=== PATIENT | male | born 1970 | race Caucasian/White ===

== ENCOUNTER → 2017-03-29 | Outpatient (CLI) | payer BC ==
--- NOTE | 2017-03-29 10:40 | US ---
EXAMINATION TYPE: US kidneys/renal and bladder DATE OF EXAM: 03/29/2017 COMPARISON: 04/20/16 CLINICAL HISTORY: N20.0. History of kidney stones EXAM MEASUREMENTS: Right Kidney: 11.5 x 6.1 x 5.1 cm Left Kidney: 11.6 x 6.3 x 4.9 cm Right Kidney: no evidence of hydronephrosis or mass Left Kidney: possible stone mid = 0.6cm Bladder: appears wnl Bilateral Jets seen: no There is no evidence for hydronephrosis at this point in time. No masses are identified. The urina ry bladder is anechoic IMPRESSION: I cannot exclude nonobstructive nephrolithiasis left kidney.
--- NOTE | 2017-03-29 14:21 | XR ---
EXAMINATION TYPE: XR KUB DATE OF EXAM: 03/29/2017 CLINICAL DATA: 46-year-old male history of bilateral kidney stones, follow-up study, COMPARISON: 03/25/2016 FINDINGS: Punctate 2 mm calcification again projecting at the left mid abdomen. Surgical material at the right lower quadrant/right hemipelvis. Multiple pelvic phleboliths. IMPRESSION: Stable punctate 2 mm calcification left mid midabdomen, likely tiny renal calculus.
== END | disposition home or self-care (01) ==
LOC: RADUSWWP 08:39
PROVIDERS: ATTEND Urology
DX: N28.89 Other specified disorders of kidney and ureter (principal)
CPT/HCPCS: 74000; 76770

== ENCOUNTER 2017-04-09 06:26 | Emergency (ER) | payer BC ==
[2017-04-09 06:32] VITALS: BP 169/87; PULSE 78; RESP 16; TEMP 98
--- NOTE | 2017-04-09 07:13 | ED ---
General Adult HPI - General Chief complaint: Fall Stated complaint: Rib Pain-Right Side Time Seen by Provider: 04/09/17 06:58 Source: patient, RN notes reviewed, old records reviewed Mode of arrival: ambulatory Limitations: no limitations - History of Present Illness Initial comments: 46-year-old male presents with right-sided chest pain. Patient states proximately 2 weeks ago, he was working on his deck, fell from a standing height onto a floor joist. Patient states he took the full impact with his right-sided chest. Since that time he has had mild intermittent chest pain, worse with deep inspiration, sharp in nature. Patient states last night this pain became more severe, woke him from sleep. Denies any significant difficulty breathing. Patient is not on any medication. No past medical history. Patient denies head or neck injury. Has no other complaints. - Related Data Previous Rx's Medication Instructions Recorded Acetaminophen with Codeine 1 tab PO Q4H PRN #20 tab 03/12/16 [Tylenol w/codeine #3] Naproxen [Naprosyn] 500 mg PO Q12HR #60 tab 03/12/16 Tamsulosin HCl [Flomax] 0.4 mg PO DAILY #30 cap 03/12/16 Hydrocodone/Acetaminophen [Beacon 1 each PO Q6HR PRN #20 tab 03/13/16 5-325] Ondansetron Odt [Zofran ODT] 4 mg PO Q8HR PRN #20 tab 03/13/16 Ibuprofen [Motrin] 600 mg PO Q8HR PRN #24 tab 04/09/17 Allergies Allergy/AdvReac Type Severity Reaction Status Date / Time acetaminophen [From Vicodin] Allergy Unknown Verified 04/09/17 06:32 amoxicillin Allergy Unknown Verified 04/09/17 06:32 clindamycin Allergy Unknown Verified 04/09/17 06:32 hydrocodone bitartrate Allergy Unknown Verified 04/09/17 06:32 [From Vicodin] tramadol Allergy Unknown Verified 04/09/17 06:32 Review of Systems ROS Statement: Those systems with pertinent positive or pertinent negative responses have been documented in the HPI. ROS Other: All systems not noted in ROS Statement are negative. Past Medical History Past Medical History: No Reported History History of Any Multi-Drug Resistant Organisms: None Reported Past Surgical History: Hernia Repair Past Psychological History: No Psychological Hx Reported Smoking Status: Never smoker Past Alcohol Use History: None Reported Past Drug Use History: None Reported General Exam Limitations: no limitations General appearance: alert, in no apparent distress Head exam: Present: atraumatic, normocephalic Eye exam: Present: normal appearance, PERRL ENT exam: Present: normal exam Neck exam: Present: normal inspection. Absent: tenderness, meningismus Respiratory exam: Present: normal lung sounds bilaterally, chest wall tenderness (Right anterior lateral chest wall tenderness). Absent: respiratory distress Cardiovascular Exam: Present: regular rate, normal rhythm GI/Abdominal exam: Present: soft. Absent: distended, tenderness Extremities exam: Present: normal inspection, normal capillary refill. Absent: pedal edema Back exam: Present: normal inspection, full ROM. Absent: tenderness, paraspinal tenderness, vertebral tenderness Neurological exam: Present: alert, oriented X3, CN II-XII intact. Absent: motor sensory deficit Psychiatric exam: Present: normal affect, normal mood Skin exam: Present: warm, dry, intact. Absent: cyanosis, diaphoretic Course Vital Signs 04/09/17 06:28 Temperature 98 F Pulse Rate 78 Respiratory 16 Rate Blood Pressure 169/87 O2 Sat by Pulse 98 Oximetry Medical Decision Making - Medical Decision Making 46-year-old male presenting with right anterior lateral rib pain status post fall. Patient had worsening pain today. No difficulty breathing. Patient is comfortable on examination. X-rays obtained including lateral rib films, this is negative for fracture. There is no underlying lung injury or pneumothorax. Patient will continue to take pain medication at home. He is encouraged to deep breathe. He will follow-up with his primary care physician. Disposition Clinical Impression: Contusion of rib on right side Disposition: HOME SELF-CARE Condition: Good Instructions: Rib Contusion (ED) Prescriptions: Ibuprofen [Motrin] 600 mg PO Q8HR PRN #24 tab PRN Reason: Pain Referrals: Luc Nelson MD [Primary Care Provider] - 1-2 days Time of Disposition: 08:03
--- NOTE | 2017-04-09 07:56 | XR ---
EXAMINATION TYPE: XR ribs RT w pa chest xray DATE OF EXAM: 04/09/2017 COMPARISON: NONE HISTORY: Pain TECHNIQUE: Single view of the chest and 4 views of the ribs are submitted. FINDINGS: The lungs are clear. No Evidence for pneumothorax. No evidence for focal contusion. Medi astinal structures are midline. Evaluation of the ribs fails to demonstrate evidence for displaced r ib fracture or secondary sign of rib fracture. IMPRESSION: Negative study
== END 2017-04-09 08:00 | disposition home or self-care (01) ==
LOC: EC 06:26
DX: S20.211A Contusion of right front wall of thorax, initial encounter (principal); Z88.0 Allergy status to penicillin; Z88.1 Allergy status to other antibiotic agents; Z88.5 Allergy status to narcotic agent; Z88.6 Allergy status to analgesic agent; W19.XXXA Unspecified fall, initial encounter
CPT/HCPCS: 99284

== ENCOUNTER → 2018-05-12 | Outpatient (CLI) | payer BC ==
--- NOTE | 2018-05-12 09:46 | US ---
EXAMINATION TYPE: US renal artery duplex complet DATE OF EXAM: 05/12/2018 COMPARISON: NONE CLINICAL HISTORY: I10 essential hypertension. MEASUREMENTS: RENAL SIZE: Rt Kidney: 11.8 x 6.5 x 5.5cm Lt Kidney: 11.8 x 6.0 x 5.9cm RESISTANCE INDEX Right: 0.89 Left: 0.70 RA/AO RATIO (< 3.5 ) Right: 1.2 Left: 0.9 RA VELOCITY ( < 180 cm/s) Right: 160cm/s Left: 122cm/s Patient had severe overlying bowel gas, technically difficult and somewhat limited exam. Renal artery not well seen bilaterally due to overlying bowel gas, not seen proximally on right. Aorta bifurcation obscured by bowel gas. Punctate renal calculi present bilaterally. No evidence of renal artery stenosis seen in this somewhat limited study. IMPRESSION: 1. The exam is technically limited due to overlying bowel gas with the renal arteries not well visual ized. Given this limitation there is no sonographic evidence of renal arterial stenosis. If there is further clinical concern CTA abdomen could be performed. 2. Bilateral subcentimeter nonobstructing renal calculi.
== END ==
LOC: RADUSMAIN 07:23
PROVIDERS: ATTEND Internal Medicine
DX: I10 Essential (primary) hypertension (principal)
CPT/HCPCS: 93975

== ENCOUNTER → 2018-05-31 | Outpatient (CLI) | payer BC ==
--- NOTE | 2018-05-31 09:03 | CT ---
EXAMINATION TYPE: CT angio abdomen DATE OF EXAM: 05/31/2018 COMPARISON: 03/12/2016 HISTORY: Essential Hypertension CT DLP: 1013 mGycm, Automated Exposure Control for Dose Reduction was Utilized. CONTRAST: CT scan of the abdomen and pelvis is performed with oral and without and with IV Contrast, patient in jected with 100 mL of Isovue 370. FINDINGS: LUNG BASES: No significant abnormality is appreciated. LIVER/GB: Subcentimeter hypodensities within the liver are stable and therefore likely related to sma ll hepatic cysts. PANCREAS: No significant abnormality is seen. SPLEEN: No significant abnormality is seen. ADRENALS: No significant abnormality is seen. KIDNEYS: There are 2 left-sided a single right-sided renal artery which appear widely patent bilatera lly. No diagnostic evidence of renal artery stenosis. Punctate nonobstructing renal calculus noted bi laterally BOWEL: No significant abnormality is seen. LYMPH NODES: No greater than 1cm abdominal or pelvic lymph nodes are appreciated. OSSEOUS STRUCTURES: Bilateral spondylolysis of L5 OTHER: Aorta of normal caliber.. IMPRESSION: 1. No diagnostic evidence of renal artery stenosis. 2. Nonobstructing punctate bilateral renal calculi
== END | disposition home or self-care (01) ==
LOC: RADCTMAIN 08:03
PROVIDERS: ATTEND Internal Medicine
DX: N20.0 Calculus of kidney (principal); I10 Essential (primary) hypertension
CPT/HCPCS: 74175; Q9967

== ENCOUNTER 2018-08-09 08:52 | Day surgery (SDC) | payer BC ==
[2018-08-05 11:23] VITALS: BMI 29.4
[~2018-08-09 08:52] MED LIST: LACTATED RINGERS 1,000 ML IV SCH; LIDOCAINE 1% 20 ML VIAL (10MG/ML) FOR IV START INTRADERMA PRN
[2018-08-09 09:26] VITALS: RESP 16; TEMP 98.7
[2018-08-09] MEDS ORDERED: PROPOFOL 10 MG/ML 20 ML VIAL IV ONE (09:53)
[2018-08-09] MEDS ORDERED: LIDOCAINE 1% INJ 10MG/ML (20 ML MDV) ONE (09:53)
--- NOTE | 2018-08-09 10:32 | P.PCN ---
Date of Procedure: 08/09/18 Procedure(s) Performed: Procedure: 1. Esophagogastroduodenoscopy and biopsy. 2. Colonoscopy and polypectomy. Preoperative diagnosis: Atypical chest pain and family history of colon cancer in his father. Postoperative diagnosis: 1. Small sliding hiatal hernia and LA grade B distal esophagitis and a very short segment of Ngo's esophagus. 2. Mild antral gastritis. 3. Multiple biopsies obtained from the duodenum, antrum, esophagus including separate biopsies from the Ngo's segment. 4. Two small sigmoid polyps snared but no large polyps or cancer. Preparation: HalfLytely prep. Sedation: Was provided by anesthesia. Brief clinical history: The patient is a 48-year-old male with family history of colon cancer in his father. His last colonoscopy was in 2010. The patient, in addition, has reflux kind symptoms and atypical chest pain that responds to PPI with recurrence off the medication. Procedure: With the patient on his left lateral decubitus position and after informed consent and adequate sedation, I passed the Olympus-GIF a 190 video upper endoscope through the cricopharyngeus down the esophagus. GE junction was around 38 cm from the incisors and there was a small sliding hiatal hernia and a short segment of Ngo's esophagus. The distal esophagus showed LA grade B es ophagitis. No strictures or ulcers. The endoscope was then passed into the stomach which was insufflated with air and inspected in detail including the retroflex view in the cardia. There was some minimal mottling and erythema in the antrum but no ulcers or erosions. Pyloric channel, duodenal bulb, post bulbar area and descending duodenum appeared within normal limits. I obtained biopsies from the duodenum, antrum and esophagus including separate specimens from the Ngo's segment then the endoscope was withdrawn and I proceeded to perform the colonoscopy. Perianal area did not show any fissures or fistulas. There were no masses felt on digital rectal examination. The Olympus CFH 190L video colonoscope was then inserted in the rectum in the usual fashion and advanced to the cecum. There were 2 small polyps in the sigmoid between 30 and 40 cm from the anal verge which were snared and retrieved by suction but there were no large polyps or cancer. The mucosa appeared healthy. No definite diverticular disease or other pathology. I retroflexed the endoscope in the rectum before the endoscope was withdrawn. The patient tolerated the procedure well. Plan: The patient was reassured. Will await pathology results. I recommended repeat colonoscopy in 5 years. He will follow up with you as planned and I will be happy to see in the office of his upper GI symptoms continue.
[2018-08-09 10:43] VITALS: BP 106/62; PULSE 55
== END 2018-08-09 11:00 | disposition home or self-care (01) ==
LOC: ORWHC2ENDO 08:52
DX: Z12.11 Encounter for screening for malignant neoplasm of colon (principal); D12.5 Benign neoplasm of sigmoid colon; K44.9 Diaphragmatic hernia without obstruction or gangrene; K29.50 Unspecified chronic gastritis without bleeding; K22.70 Barrett's esophagus without dysplasia; K21.0 Gastro-esophageal reflux disease with esophagitis; Z80.0 Family history of malignant neoplasm of digestive organs; I10 Essential (primary) hypertension; Z79.82 Long term (current) use of aspirin; Z79.899 Other long term (current) drug therapy; Z88.1 Allergy status to other antibiotic agents; Z88.5 Allergy status to narcotic agent; Z88.0 Allergy status to penicillin
CPT/HCPCS: 88305; 45385; 43239; J2001; J2704

== ENCOUNTER → 2018-09-08 | Outpatient (CLI) | payer BC ==
--- NOTE | 2018-09-13 14:52 | SLS ---
SLEEP STUDY HOME SLEEP STUDY: DATE OF SERVICE: 09/08/2018 A 48-year-old male patient with symptoms of snoring, feeling tired and fatigued during the day. Who carried an [place] score of 9. He came in for sleep apnea evaluation. I had a high suspicion for NELA and the patient was set up to undergo a home sleep study. PERTINENT PHYSICAL FINDINGS: Height is 70 inches, weight is 218, BMI 31.3 TECHNICAL DESCRIPTION: The [employer] T3 system was used to complete the home sleep study. Total recording duration was 7 hours and 11 minutes. Bedtime started at 10:16 pm and ended at 5:12 am and total time in bed was 6 hours and 56 minutes. RESULTS: The respiratory count showed a total of 74 obstructive apneas, 44 central/mixed apneas, and 76 hypopneas and the resulting apnea-hypopnea index was 28. The disease was worse in the supine body position with an AHI of 38.6 while supine. OXYGENATION ANALYSIS: The patient had oxygen desaturation, a total of 132 oxygen desaturations were counted with otherwise pulse ox peak 85% and this patient spent approximately 2% of sleep time only at a pulse ox of less than 90%. CARDIAC SUMMARY: Average heart rate was 50, minimum heart was 42, maximum heart rate was 69. IMPRESSION: 1. Symptomatic sleep apnea probably a combination of obstructive and mixed. The patient's apnea-hypopnea index was 28, worse in the supine body position. 2. Mild nocturnal oxygen desaturation. 3. Chronic hypersomnia, [place] score of 9. PLAN: 1. Encourage weight loss. 2. Ask the patient to present back to the [facility] to undergo a CPAP titration regarding his symptomatic obstructive sleep apnea. 3. Implement good sleep hygiene measures. 4. Extend sleep hours to an average of 7 to 8 hours of sleep per night. 5. Will continue to follow. MMODL / IJN: [id number] /
== END ==
LOC: SLEEP 16:39
PROVIDERS: ATTEND Internal Medicine Critical Care Medicine
DX: G47.30 Sleep apnea, unspecified (principal); R53.83 Other fatigue

== ENCOUNTER → 2019-01-10 | Outpatient (CLI) | payer BC ==
--- NOTE | 2019-01-10 20:21 | PN ---
PROGRESS NOTE This is a 48-year-old male patient who was recently diagnosed having obstructive sleep apnea, moderate to severe, with an AHI of 28, worse in the supine body position with an AHI of 36 while being supine. The patient was quite somnolent and sleepy with an [place] score of 9 and the patient was started on CPAP at a pressure of 8 cm of water. On today's evaluation, he feels great; his sleep quality has improved; he is much more alert and refreshed during the day and he has more energy. Unfortunately he has gained weight. He used to weigh 208 pounds and currently is up to 226. No morning headaches. No tiredness or sleepiness during the day. He is committed to weight loss. He thinks his weight gain is related to his dietary habits. REVIEW OF SYSTEMS: Fourteen-point review of systems was done. Positive findings were all mentioned above in the history of present illness. No insomnia. No headache. No morning tiredness or sleepiness. No falling asleep while driving a car. No nocturia. No insomnia. No choking or gasping for air. His snoring has completely subsided. PHYSICAL EXAMINATION: VITAL SIGNS: BP is 150/73, pulse 56, respirations 16, temperature 98.7. Weight is 226. Saturation 96% on room air. GENERAL APPEARANCE: Calm, comfortable. HEAD: Atraumatic, normocephalic. NECK: Supple. No JVD. No goiter or neck masses. LUNGS: Clear to auscultation. HEART: Heart sounds are regular rate and rhythm. Normal S1, S2. No S3, S4. No murmurs. ABDOMEN: Soft, nontender. No organomegaly. EXTREMITIES: No edema. No cyanosis or clubbing. NEUROLOGIC: Alert and oriented x3. No focal neurological deficits. PSYCHIATRIC: Negative for anxiety or depression. IMPRESSION: 1. Obstructive sleep apnea, moderate to severe, with apnea/hypopnea index of 28, currently on CPAP pressure of 8 with extremely good clinical response and compliance. 2. Poor sleep efficiency, improved with CPAP therapy. 3. Delayed sleep onset, improved with CPAP therapy. 4. Chronic hypersomnia, recovered. 5. Snoring, recovered. 6. Obesity with interval weight gain. 7. Hypertension. PLAN: 1. Encourage weight loss. 2. Keep CPAP pressure at 8 with a C-flex of 3. 3. Continue using the same mask, which is a DreamWear [id number], and offer the DreamWear nose pillows. 4. Eliminate RAMP time. 5. Drop the temperature of the tubing down to 66 degrees. 6. Drop the humidity down to 4. 7. See me back in a year's time in followup, earlier if needed. Treatment is successful for now. MMODL / IJN: [id number] /
== END | disposition home or self-care (01) ==
LOC: SLEEP 15:49
PROVIDERS: ATTEND Internal Medicine Critical Care Medicine
DX: G47.33 Obstructive sleep apnea (adult) (pediatric) (principal); E66.9 Obesity, unspecified; I10 Essential (primary) hypertension; Z99.89 Dependence on other enabling machines and devices

== ENCOUNTER → 2020-02-07 | Outpatient (CLI) | payer BC ==
--- NOTE | 2020-02-07 08:33 | US ---
EXAMINATION TYPE: US renal artery duplex complete DATE OF EXAM: 02/07/2020 COMPARISON: CT angio/Us CLINICAL HISTORY: I10 Essential primary hypertension. 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 No evidence of renal artery stenosis. IMPRESSION: No diagnostic evidence of renal artery stenosis
== END | disposition home or self-care (01) ==
LOC: RADUSWWP 06:52
PROVIDERS: ATTEND Internal Medicine
DX: I10 Essential (primary) hypertension (principal)
CPT/HCPCS: 93975

== ENCOUNTER 2020-09-17 13:00 | Emergency (ER) | payer BC, OTHER ==
[2020-09-17 13:06] VITALS: BP 161/94; PULSE 70; RESP 20; TEMP 98
--- NOTE | 2020-09-17 14:04 | XR ---
EXAMINATION TYPE: XR shoulder complete RT DATE OF EXAM: 09/17/2020 COMPARISON: NONE HISTORY: Pain TECHNIQUE: Three views are submitted. FINDINGS: The osseous structures are intact. There is no acute fracture or dislocation. Diffuse osteopenia wit h AC joint arthropathy. Calcification along the humeral head can be associated with calcific tendinos is. IMPRESSION: 1. AC joint arthropathy.
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
[2020-09-17] MEDS ORDERED: ACET/COD 300 MG/30 MG STARTER PACK 6 TAB BTL PO STA (14:33)
== END 2020-09-17 14:50 | disposition home or self-care (01) ==
LOC: EC 13:00
DX: S49.91XA Unspecified injury of right shoulder and upper arm, initial encounter (principal); K21.9 Gastro-esophageal reflux disease without esophagitis; I10 Essential (primary) hypertension; Z79.82 Long term (current) use of aspirin; Z79.899 Other long term (current) drug therapy; W24.0XXA Contact with lifting devices, not elsewhere classified, initial encounter
CPT/HCPCS: 99283

== ENCOUNTER → 2021-04-01 | Outpatient (CLI) | payer BC ==
--- NOTE | 2021-04-01 16:41 | PN ---
PROGRESS NOTE Salty is 50, coming in for a followup regarding obstructive sleep apnea. His last evaluation was in January 2019. As mentioned earlier, the patient has obstructive sleep apnea with an AHI of 28. Over the past 2 years the patient has lost weight and currently is down to 212 pounds. He is utilizing CPAP. Initial pressure was at 8 and he made his own adjustment by bringing the pressure up to 9.2 cm of water. Based on a 30-day compliancy evaluation, the patient has been averaging around 5.2 hours of CPAP use per night and using the P30I nasal pillows with a leak of 2 L/minute and his AHI is down to 1.1. His treatment is successful. On today's evaluation I further suggested switching him to an APAP mode, knowing that at times he is benefitting from a higher pressure. I suggested we put him at a minimum pressure of 4 and maximum pressure of 10 APAP mode and appropriate adjustment was done on the CPAP machine. Otherwise he is doing well. No other new onset comorbidities since his last evaluation. BP is under good control. His medication include: Olmesartan, hydrochlorothiazide 40/12.5 1 tab a day. REVIEW OF SYSTEMS: Fourteen-point review of system was done. Positive findings are mentioned above in the history of present illness. PHYSICAL EXAMINATION: BP is 132/80, pulse 84, respirations 16, temperature 97.3, saturation 98% on room air. Height is 5 feet 10 inches, weight is 212. BMI is 30.4. [place] score is at 5. GENERAL APPEARANCE: Calm, comfortable. Head is atraumatic. Normocephalic. NECK: Supple. No JVD. No goiter or neck masses. Mallampati class 4. LUNGS: Clear to auscultation. HEART: Heart sounds are regular rate and rhythm. Normal S1, S2. No S3. No murmurs. ABDOMEN: Soft, nontender. No organomegaly. EXTREMITIES: No edema, no cyanosis or clubbing. IMPRESSION: Symptomatic obstructive sleep apnea, AHI of 28. Currently the patient is utilizing CPAP at a pressure of 9.2 cm of water. PLAN: Treatment is successful. The patient is asymptomatic. Continue CPAP therapy and switch this patient to an APAP mode, pressure minimum of 4, maximum of 10, keeping the same mask interface and the patient is currently on a P30I medium-sized nasal pillows. Treatment is successful. Blood pressure is under good control. He is benefitting from treatment, waking up refreshed and alert during the day. No other issues for now. See me back in a year's time in followup, earlier if needed. Treatment is successful. MMODL / IJN: [id number] /
== END ==
LOC: SLEEP 14:15
PROVIDERS: ATTEND Internal Medicine Critical Care Medicine
DX: G47.33 Obstructive sleep apnea (adult) (pediatric) (principal); Z99.89 Dependence on other enabling machines and devices; Z88.1 Allergy status to other antibiotic agents; Z88.5 Allergy status to narcotic agent; Z88.6 Allergy status to analgesic agent

== ENCOUNTER → 2021-08-20 | Outpatient (CLI) | payer BC ==
--- NOTE | 2021-08-20 12:14 | P.STRESS ---
- Stress Test Note Stress Test Results/Findings: Exam Performed: stress echo exercise Exam Date: 08/20/21 Reason for Exam: CP Height: 5 ft 10 in Weight: 213 kg Protocol: STRESS ECHO Stage: III Duration of Exercise: 10.11 Resting Heart Rate: 72 Resting Blood Pressure: 129/74 Maximum Achieved Heart Rate: 165 Maximum Achieved Blood Pressure: 207/79 85% PMHR: 143 100% PMHR: 168 METS: 11.7 Technologist Comment: Stress Test Results/Findings: Patient underwent exercise stress echo with a Blanco protocol treadmill stress test. Patient exercised into Stage 3 for a total of 10 minutes 11 seconds reaching a total of 11.7 METS. Patient's maximum heart rate was 165 which represented 98 % age-predicted maximum heart rate. Stress EKG portion: At baseline patient's EKG showed normal sinus rhythm, normal axis, nonspecific T-wave inversions in V3 through V6 and lead 2 and 3. At peak exercise, EKG showed accentuation of baseline EKG abnormalities with up to 0.[address] depressions V3 through V6 which is nondiagnostic given baseline EKG abnormalities. Stress echo portion: 2-D echocardiogram was performed in the parasternal long, personal short, apical 2 and apical four-chamber views at rest, peak exercise and in recovery. At baseline, echocardiogram showed left ventricular ejection fraction 55% without wall motion abnormalities. With peak exercise, echocardiogram shows inducible basal and mid anterior lateral hypokinesis consistent with ischemia. Conclusions: 1. Nondiagnostic EKG portion secondary baseline EKG abnormalities. 2. Abnormal stress echo portion with inducible anterior lateral ischemia. 3. Good exercise capacity.
== END | disposition home or self-care (01) ==
LOC: RADNMMAIN 08:47
PROVIDERS: ATTEND Family Medicine
DX: R93.1 Abnormal findings on diagnostic imaging of heart and coronary circulation (principal); I25.9 Chronic ischemic heart disease, unspecified
CPT/HCPCS: 93351

== ENCOUNTER 2021-09-03 11:42 | Day surgery (SDC) | payer BC ==
[2021-09-02 15:48] VITALS: BMI 30.2
[~2021-09-03 11:42] MED LIST changes: +ALPRAZolam 0.25 MG TAB PO PRN; +ALPRAZolam 0.5 MG TAB PO PRN; +ASPIRIN 325 MG TAB PO STA; +ATORVASTATIN 80 MG TAB PO STA; +HEPARIN SODIUM,PORCINE 10,000 UNIT in SODIUM CHLORIDE 0.9% 1,000 ML IRRIGATION PRN; +HEPARIN SODIUM,PORCINE 2,500 UNIT in SODIUM CHLORIDE 0.9% 250 ML IRRIGATION PRN; -LACTATED RINGERS 1,000 ML IV SCH; -LIDOCAINE 1% 20 ML VIAL (10MG/ML) FOR IV START INTRADERMA PRN; +NITROGLYCERIN SL TABS 0.4 MG TAB SUBLINGUAL PRN; +SODIUM CHLORIDE 0.9% 1,000 ML in EMPTY BAG 1 BAG IV SCH
[2021-09-03] MEDS ORDERED: SODIUM CHLORIDE 0.9% 1,000 ML IV ONE (11:52)
[2021-09-03 12:15] VITALS: RESP 16; TEMP 98.4
[2021-09-03 12:31] LABS: Basophils # (A) 0.1 k/uL (0-0.2); Basophils % (A) 1 %; Eosinophils # (A) 0.2 k/uL (0-0.7); Eosinophils % (A) 2 %; HCT 45.6 % (39.0-53.0); HGB 15.1 gm/dL (13.0-17.5); Lymphocytes # (A) 2.8 k/uL (1.0-4.8); Lymphocytes % (A) 29 %; MCH 29.1 pg (25.0-35.0); MCHC 33.1 g/dL (31.0-37.0); MCV 87.8 fL (80.0-100.0); Mean Platelet Volume 7.1; Monocytes # (A) 0.4 k/uL (0-1.0); Monocytes % (A) 4 %; Neutrophils # (A) 5.9 k/uL (1.3-7.7); Neutrophils % (A) 62 %; Platelet Count 304 k/uL (150-450); RDW 12.8 % (11.5-15.5); WBC 9.4 k/uL (3.8-10.6)
[2021-09-03 12:33] LABS: African American GFR (CKD) >90 (>60 ml/min/1.73 sqM); Anion Gap 9 mmol/L; Blood Urea Nitrogen 17 mg/dL (9-20); Calcium 9.3 mg/dL (8.4-10.2); Carbon Dioxide 26 mmol/L (22-30); Chloride 104 mmol/L (98-107); Glucose 142 mg/dL (74-99); Non-African American GFR(CKD) >90 (>60 ml/min/1.73 sqM); Potassium 3.5 mmol/L (3.5-5.1); Sodium 139 mmol/L (137-145)
[2021-09-03] MEDS ORDERED: MIDAZOLAM 2 MG/2 ML VIAL IVP ONE (13:20)
[2021-09-03] MEDS ORDERED: LIDOCAINE 1% INJ 10MG/ML (5 ML VIAL-PF) SQ ONE (13:22)
[2021-09-03] MEDS ORDERED: VERAPAMIL SYRINGE (5 MG/10 ML) INTRAARTER ONE (13:24)
[2021-09-03] MEDS ORDERED: HEPARIN SODIUM 1,000 UN/ML (10ML VL) IVP ONE (13:25)
[2021-09-03] MEDS ORDERED: IOPAMIDOL-370 125ML BTL INJ ONE (13:30)
[2021-09-03] MEDS ORDERED: RX INFO: IV CONTRAST WAS GIVEN 1 EACH MISC MISCELLANE PRN (13:37)
--- NOTE | 2021-09-03 13:42 | P.PCN ---
Date of Procedure: 09/03/21 Operative Findings: CARDIAC CATHETERIZATION PERFORMING PHYSICIAN: Main Suarez MD, RPVI PROCEDURE PERFORMED: 1. Selective right and left coronary angiogram 2. Left heart catheterization INDICATION: This is a 52-year-old gentleman who was experiencing symptoms of chest discomfort and underwent an perfusion imaging stress test came in to be abnormal showing anterolateral ischemia. In the light of that heart catheterization was advised COMPLICATION: None APPROACH: Right radial artery LEVEL OF SEDATION: Moderate with a sedation length of 14 minutes PROCEDURE DESCRIPTION: After obtaining an informed consent, the patient was brought to cardiac geophysical laboratory chief. Local anesthesia was performed using lidocaine subcutaneously. The right radial artery was cannulated using Seldinger technique, the guidewire passed easily, following that we advanced a 5-Azerbaijani sheath dilator assembly, the wire and dilator were removed and sheath was flushed. Following that, 2 mg of verapamil along with 5000 unit heparin were given. Selective right and left coronary angiogram using a 6-Azerbaijani JR4 and JL 3.5 catheters. Following that we did left heart catheterization using the JR4 catheter which cross the aortic valve The procedure was completed there was no complication. SELECTIVE CORONARY ANGIOGRAM: The right coronary artery: Is a large caliber vessel and a dominant vessel. Its angiographically normal. Distally bifurcates into PDA and PLV branches both appear to be angiographically normal. Left main: Has mild disease in the ostium appears to be in the range of 20-30%. The left circumflex: Is a large caliber vessel nondominant vessel. The LCx is angiographically normal. It gives rises into the first and second obtuse marginal branches and it appeared to be angiographically normal The left anterior descending artery: Is angiographically normal. Gives rises into the first and second diagonal branches and both appeared to be angiographically normal. The mid LAD has is mild component of myocardial bridging HEMODYNAMICS: The LVEDP was 12 mmHg without significant gradient across aortic valve CONCLUSION: 1. Myocardial bridging of the mid LAD 2. Normal LVEDP POSTPROCEDURE MANAGEMENT: Medical treatment and follow-up
[2021-09-03] MEDS ORDERED: SODIUM CHLORIDE 0.9% 1,000 ML IV SCH (13:45)
[2021-09-03 16:13] VITALS: BP 127/76
[2021-09-03 16:50] VITALS: PULSE 62
== END 2021-09-03 17:30 | disposition home or self-care (01) ==
LOC: CATHCVL 11:42
PROVIDERS: ATTEND Internal Medicine Interventional Cardiology
DX: I25.110 Atherosclerotic heart disease of native coronary artery with unstable angina pectoris (principal); E78.00 Pure hypercholesterolemia, unspecified; I10 Essential (primary) hypertension; R94.39 Abnormal result of other cardiovascular function study; R07.89 Other chest pain; Z20.822 Contact with and (suspected) exposure to COVID-19; R00.1 Bradycardia, unspecified; Z82.49 Family history of ischemic heart disease and other diseases of the circulatory system; E66.3 Overweight; Z79.02 Long term (current) use of antithrombotics/antiplatelets; Z79.899 Other long term (current) drug therapy
CPT/HCPCS: 93458; 80048; 85025; 87635; C1894; J2250; J2001; J1644; Q9967

== ENCOUNTER 2021-09-12 06:23 | Day surgery (SDC) | payer BC ==
[2021-09-10 13:13] VITALS: BMI 31.5
[~2021-09-12 06:23] MED LIST changes: -ALPRAZolam 0.25 MG TAB PO PRN; -ALPRAZolam 0.5 MG TAB PO PRN; -ASPIRIN 325 MG TAB PO STA; -ATORVASTATIN 80 MG TAB PO STA; -HEPARIN SODIUM,PORCINE 10,000 UNIT in SODIUM CHLORIDE 0.9% 1,000 ML IRRIGATION PRN; -HEPARIN SODIUM,PORCINE 2,500 UNIT in SODIUM CHLORIDE 0.9% 250 ML IRRIGATION PRN; +LACTATED RINGERS 1,000 ML IV SCH; -NITROGLYCERIN SL TABS 0.4 MG TAB SUBLINGUAL PRN; -SODIUM CHLORIDE 0.9% 1,000 ML in EMPTY BAG 1 BAG IV SCH
[2021-09-12] MEDS ORDERED: LACTATED RINGERS 1,000 ML IV ONE (06:49)
[2021-09-12 06:51] VITALS: TEMP 98
[2021-09-12] MEDS ORDERED: fentaNYL (PF) 50 MCG/ML 2 ML AMP ONE (07:48)
[2021-09-12] MEDS ORDERED: LIDOCAINE 2% INJ 20 MG/ML (2 ML VIAL) ONE (07:48)
[2021-09-12] MEDS ORDERED: PROPOFOL 10 MG/ML 20 ML VIAL IV ONE (07:48)
[2021-09-12] MEDS ORDERED: MIDAZOLAM 2 MG/2 ML VIAL ONE (07:48)
--- NOTE | 2021-09-12 08:07 | P.PCN ---
Date of Procedure: 09/12/21 Procedure(s) Performed: Brief history: Patient is a pleasant 51-year-old white male scheduled for an elective upper endoscopy as well as colonoscopy as a part of evaluation of GERD/Ngo's esophagus and screening for colon cancer. He also has family history of colon cancer. Procedure performed: Esophagogastroduodenoscopy biopsy Colonoscopy with snare polypectomy Preoperative diagnosis: GERD/Ngo's esophagus Screening for colon cancer Anesthesia: [facility] [place] Procedure: After informed consent was obtained from the patient was brought into the endoscopy unit and IV sedation was administered by anesthesia under continuous monitoring. Initially upper endoscopy was done. The Olympus GF 160 video end oscope was inserted inserted into the mouth and esophagus intubated without any difficulty and was gradually advanced into the stomach and duodenum and carefully examined. The bulb and second part of the duodenum appeared normal. The scope was then withdrawn into the stomach adequately insufflated with air and upon careful examination the antrum and body, cardia and fundus appeared normal. The scope was then withdrawn into the esophagus. The GE junction was located at 40 cm to the incisors. There was a 3 mm island of Ngo's appearing mucosa just proximal to the GE junction which was biopsied. It appeared regular with no erythema erosions or ulcerations. Rest of the esophagus appeared normal. Patient tolerated the procedure well. At this time the patient continued to remain sedation. Initial digital rectal examination was normal. Olympus CF 160 video colonoscope was then inserted into the rectum and gradually advanced to the cecum without any difficulty. Careful examination was performed as the scope was gradually being withdrawn. The prep was excellent. The cecum, ascending colon, transverse colon, we normal. In the descending colon there were 3 polyps measuring between 3 mm and 5 mm removed by snare polypectomy. Rest of the descending colon, sigmoid colon and rectum appeared normal. Retroflexion was performed in the rectum and no lesions were noted. Patient tolerated the procedure well. Impression: 1. Upper endoscopy revealed 2 mm island of Ngo's appearing mucosa just proximal to the GE junction, status post biopsy 2. Last revealed 3 mm, 5 mm 2 descending colon polyp status post snare polypectomy Recommendations: Findings of this examination were discussed with the patient as well as his family. He was advised to follow with the biopsy results. If the biopsy confirms the presence of Ngo's esophagus he can have a repeat upper in 3 years. Repeat colonoscopy in 5 years.
[2021-09-12 08:14] VITALS: RESP 16
[2021-09-12 08:26] VITALS: BP 120/80; PULSE 65
== END 2021-09-12 08:50 | disposition home or self-care (01) ==
LOC: ORWHC2ENDO 06:23
PROVIDERS: ATTEND Internal Medicine Gastroenterology
DX: K22.70 Barrett's esophagus without dysplasia (principal); D12.4 Benign neoplasm of descending colon; K21.9 Gastro-esophageal reflux disease without esophagitis; I10 Essential (primary) hypertension; G47.33 Obstructive sleep apnea (adult) (pediatric); Z99.81 Dependence on supplemental oxygen; Z88.3 Allergy status to other anti-infective agents; Z88.5 Allergy status to narcotic agent; Z79.82 Long term (current) use of aspirin; Z79.899 Other long term (current) drug therapy; Z80.0 Family history of malignant neoplasm of digestive organs
CPT/HCPCS: 45385; 43239; 88305; J2250; J3010; J2704; J2001

== ENCOUNTER → 2024-04-21 | Outpatient (CLI) | payer BC ==
--- NOTE | 2024-04-21 08:50 | US ---
EXAMINATION TYPE: US abdomen complete DATE OF EXAM: 04/21/2024 COMPARISON: NONE CLINICAL INDICATION: Male, 53 years old with history of R10.9 UNSPECIFIED ABDOMINAL PAIN; twinge in R UQ, feels superficial, comes and goes, recently lost weight TECHNIQUE: Grayscale and color Doppler imaging of the abdomen was performed. FINDINGS: EXAM MEASUREMENTS: Liver Length: 16.5 cm Gallbladder Wall: 0.2 cm CBD: 0.5 cm, color Doppler imaging was utilized to isolate the common bile duct for measurement. Spleen: 8.3 cm Right Kidney: 10.7 x 5.7 x 5.6 cm Left Kidney: 11.9 x 5.1 x 7.1 cm Pancreas: limited views Liver: multiple cystic areas seen, largest right posterior lobe = 2.9 x 2.1 x 1.9cm increased echot exture to liver. Gallbladder: wnl Evidence for sonographic León's sign: no CBD: wnl Spleen: wnl Right Kidney: wnl Left Kidney: wnl Upper IVC: wnl Abd Aorta: wnl The liver is homogenous with few scattered anechoic cysts.. The intrahepatic portion of the IVC and proximal abdominal aorta are within normal limits. There is no evidence of cholelithiasis. Common b ile duct is unremarkable. The visualized portions of the pancreas are homogenous. The spleen is unr emarkable. Kidneys are symmetric and free of hydronephrosis. No renal lesions are seen. IMPRESSION: 1. No evidence for acute process. 2. Hepatic simple appearing cyst. 3. Hepatic steatosis. [facility], , 04/21/2024 8:48 AM
== END | disposition home or self-care (01) ==
LOC: RADUSWWP 07:27
PROVIDERS: ATTEND Family Medicine
DX: K76.0 Fatty (change of) liver, not elsewhere classified (principal); R10.9 Unspecified abdominal pain
CPT/HCPCS: 76700

== ENCOUNTER → 2024-07-07 | Outpatient (CLI) | payer BC ==
--- NOTE | 2024-07-07 10:33 | NM ---
EXAMINATION TYPE: NM hepatobiliary w CCK DATE OF EXAM: 07/07/2024 COMPARISON: NONE INDICATION: Abdomen pain TECHNIQUE: After the intravenous administration of 4.8 mCi Tc 99m Mebrofenin hepatobiliary scintigrap hy is performed. Images were obtained immediately post injection. FINDINGS: There is prompt uptake and excretion of radiotracer by the liver. Extrahepatic ducts are identified at 2 minutes. The gallbladder is visualized within 6 minutes. Small bowel activity is noted within the minutes. At one hour CCK was administered, patient was injected with 1.73 mcg of Kinevac, and gallbladder ejec tion fraction is calculated at 69 %, which is in the normal range.. (Normal >35% and <80%.). IMPRESSION: 1. Normal hepatobiliary scan. [facility], , 07/07/2024 10:30 AM
== END | disposition home or self-care (01) ==
LOC: RADNMMAIN 06:55
PROVIDERS: ATTEND Family Medicine
DX: R10.9 Unspecified abdominal pain (principal)
CPT/HCPCS: 78227; A9537; J2805

== ENCOUNTER 2024-09-05 09:32 | Day surgery (SDC) | payer BC ==
[2024-08-30 15:51] VITALS: BMI 26.8
[~2024-09-05 09:32] MED LIST changes: -LACTATED RINGERS 1,000 ML IV SCH; +LIDOCAINE 1% (10MG/ML) FOR IV START INTRADERMA PRN
[2024-09-05 10:13] VITALS: TEMP 97.7
[2024-09-05] MEDS: LACTATED RINGERS 1,000 ML IV SCH (10:13)
[2024-09-05] MEDS: IV FLUID CONTINUATION 1,000 ML IV ONE (10:13)
[2024-09-05] MEDS ORDERED: LIDOCAINE 2% (PF) 20 MG/ML 5 ML VIAL ONE (10:49)
[2024-09-05] MEDS ORDERED: PROPOFOL 10 MG/ML 20 ML VIAL IV ONE (10:49)
--- NOTE | 2024-09-05 10:58 | P.PCN ---
Date of Procedure: 09/05/24 Procedure(s) Performed: BRIEF HISTORY: Patient is a 54-year-old, pleasant, white male scheduled for an upper endoscopy as a part of history of longstanding history of GERD and possible Ngo's esophagus. PROCEDURE PERFORMED: Esophagogastroduodenoscopy with biopsy. PREOPERATIVE DIAGNOSIS: GERD/history of Ngo's esophagus. IV sedation per anesthesia. PROCEDURE: After informed consent was obtained, the patient was brought into the endoscopy unit. IV sedation was administered by Anesthesia under continuous monitoring. Initially the Olympus GIF-140 video endoscope was inserted into the mouth. Esophagus intubated without any difficulty. It was gradually advanced into the stomach and duodenum and carefully examined. The bulb and the second part of the duodenum appeared normal. The scope at this time was withdrawn to the stomach, adequately insufflated with air, and upon careful examination, mucosa of the antrum, body, cardia and the fundus appeared normal. The scope was then withdrawn into the esophagus. The GE junction was located at 39 cm from the incisors. Small hiatal hernia noted. There was a 2 mm tongues of Ngo's appearing mucosa proximal to the GE junction that was biopsied. The rest of the esophagus appeared normal. There were no erosions or ulcerations seen and the patient tolerated the procedure well. IMPRESSION: 1. 2 mm tongue of Ngo's appearing mucosa proximal to the GE junction status post biopsy. 2. Small hiatal hernia. RECOMMENDATIONS: The findings of this examination were discussed with the patient as well as his family. He was advised to follow-up with the biopsy results. If the biopsy confirms the presence of Ngo's esophagus he can have repeat upper endoscopy in 3 years. In the meantime he will continue with esomeprazole 40 mg daily and follow antireflux measures.
[2024-09-05 11:32] VITALS: BP 114/67; PULSE 61; RESP 16
== END 2024-09-05 11:49 | disposition home or self-care (01) ==
LOC: ORWHC2ENDO 09:32
PROVIDERS: ATTEND Internal Medicine Gastroenterology
DX: K21.00 Gastro-esophageal reflux disease with esophagitis, without bleeding (principal); K44.9 Diaphragmatic hernia without obstruction or gangrene; I10 Essential (primary) hypertension; F17.200 Nicotine dependence, unspecified, uncomplicated; Z98.890 Other specified postprocedural states; Z88.1 Allergy status to other antibiotic agents; Z88.8 Allergy status to other drugs, medicaments and biological substances; Z87.19 Personal history of other diseases of the digestive system; Z79.899 Other long term (current) drug therapy
CPT/HCPCS: 88305; 43239; J2704; J2003